=== PATIENT | female | born 1965 | race Caucasian/White ===

== ENCOUNTER 2021-04-01 15:03 | Outpatient (REF) | payer BC, SELFPAY ==
[2021-04-01 17:11] LABS: Blood Urea Nitrogen 24 mg/dL (9-16); Estimated Glomerular Filt Rate > 60
== END 2021-04-01 15:04 | disposition home or self-care (01) ==
LOC: HO.LAB 15:03
PROVIDERS: PCP Internal Medicine; Visit Provider Psychiatry & Neurology Neurology
DX: H46.9 Unspecified optic neuritis (principal)
CPT/HCPCS: 36415; 82565; 84520